=== PATIENT | female | born 1965 | race Caucasian/White ===

== ENCOUNTER → 2017-09-18 | Outpatient (CLI) | payer BC ==
--- NOTE | 2017-09-18 13:58 | MAM ---
EXAM DESCRIPTION: 3D Screening BILATERAL : Digital Mammography. CLINICAL HISTORY: 51 years Female SCREEN . No complaints. No family history breast cancer. Childbirth. Postmenopausal. Currently on HRT. COMPARISON: Baseline study at this facility.. No prior reports available. TECHNIQUE: Bilateral CC and MLO projection full-field images, 3-D tomosynthesis digital mammographic technique. CAD not utilized. FINDINGS: The breast parenchymal density pattern is: Heterogeneously dense breast tissue, which may obscure small masses. No skin thickening or nipple retraction. Bilateral axillary lymph nodes. Bilateral solitary microcalcifications. Bilateral skin calcifications. Focal asymmetry in the anterior third of the lateral left breast at the 400 clock position. No associated microcalcifications. Approximately 5 cm from the nipple. No focal, stellate mass or density, focal asymmetry , and no suspicious microcalcifications right breast. IMPRESSION: BI-RADS CATEGORY: 0 - INCOMPLETE- Need additional imaging evaluation. FOLLOW-UP: Recall for additional imaging: Bilateral 3-D tomosynthesis full field diagnostic LM images. 2-D digital spot compression in the CC projection. Followed by Targeted left breast ultrasound if indicated by diagnostic images.. Written communication concerning the IMPRESSION and Follow-up, will be mailed to the patient and referring health care provider. Electronically signed by: Nehemias Lockhart MD 09/18/2017 1:57 PM CDT
--- NOTE | 2017-09-18 16:37 | US ---
EXAM DESCRIPTION: Breast,Left: Ultrasound CLINICAL HISTORY: 51 yearsFemaleABNORMAL MAMMO COMPARISON: Digital bilateral 3-D tomosynthesis screening mammogram and unilateral 3-D tomosynthesis diagnostic left breast mammography on this visit. Prior outside images are not available at this time. TECHNIQUE: Transcutaneous scanning of the lateral left breast utilizing german-scale and Doppler modes. Scanning performed by the rn or lpn and Dr. Lockhart. FINDINGS: Scanning of the 300 - 400 clock position of the anterior left breast 6 centimeters from the nipple, to the nipple. Heterogeneous fibroglandular and fatty echotexture. No distinct solid mass or cyst. No large calcifications or parenchymal edema. No overlying skin changes. No abnormal Doppler vascularity. IMPRESSION: 1. Bi-Rads Category 2: Benign. 2. Please refer to bilateral 3-D screening and left breast diagnostic 3-D mammographic examination and reports on this visit. The FINDINGS and the FOLLOW-UP plan were reviewed in person with the patient after the examination. Written communication explaining the IMPRESSION and FOLLOW-UP will be mailed to the patient and referring care provider. Electronically signed by: Nehemias Lockhart MD 09/18/2017 4:36 PM CDT
--- NOTE | 2017-09-18 16:37 | MAM ---
EXAM DESCRIPTION: 3D Diagnostic, Bilateral: Digital Mammography CLINICAL HISTORY: 51 yearsFemaleABNORMAL MAMMO focal asymmetry, lateral left breast. COMPARISON: 3-D tomosynthesis bilateral digital screening mammography earlier today.. Targeted left breast ultrasound following this examination. TECHNIQUE: Bilateral LM projection full-field images, 3-D tomosynthesis digital mammographic technique. 2-D digital spot compression of the anterior lateral left breast CC and LM projections. CAD utilized for 2-D images. FINDINGS: The breast parenchymal density pattern is: Scattered areas of fibroglandular density. No skin thickening or nipple retraction . Scattered solitary microcalcifications in the region of interest. Focal asymmetry less dense with compression. Ultrasound: Scanning of the 300 - 400 clock position of the anterior left breast 6 centimeters from the nipple, to the nipple. Heterogeneous fibroglandular and fatty echotexture. No distinct solid mass or cyst. No large calcifications or parenchymal edema. No overlying skin changes. No abnormal Doppler vascularity. IMPRESSION: BI-RADS CATEGORY: 2 - BENIGN FINDINGS. FOLLOW UP: Return to routine digital bilateral screening, one year interval from August 2017. The FINDINGS and the FOLLOW-UP plan were reviewed in person with the patient after the examination. Written communication explaining the IMPRESSION and FOLLOW-UP will be mailed to the patient and referring care provider. According to the [employer], yearly mammograms are recommended starting at age 40 and continuing as long as a woman is in good health. Any breast change noted on a breast self-exam should be reported promptly to the patient's healthcare provider. Breast MRI is recommended for women with an approximately 20-25% or greater lifetime risk of breast cancer, including women with a strong family history of breast or ovarian cancer and women who have been treated for Hodgkin's disease. A negative mammographic report should not delay tissue diagnosis in patients with significant clinical history or physical findings. Extremely dense breast tissue limits the sensitivity of digital mammography. Electronically signed by: Nehemias Lockhart MD 09/18/2017 4:36 PM CDT
== END ==
LOC: MAMMO 10:00
PROVIDERS: ATTEND Nurse Practitioner Family
DX: Z12.31 Encounter for screening mammogram for malignant neoplasm of breast (principal); R92.8 Other abnormal and inconclusive findings on diagnostic imaging of breast
CPT/HCPCS: 76641; 77063; 77066; 77067; G0279